=== PATIENT | male | born 1970 | race African-American/Black ===

== ENCOUNTER 2025-04-04 03:59 | Inpatient (IN) | payer OTHER ==
[2025-04-03 19:00] VITALS: BP 136/96; PULSE 92; RESP 18; TEMP 35.2806; O2SAT 100
[~2025-04-04] VITALS: Ht 180.3 cm; Wt 93.7 kg
[2025-04-04] VITALS (94 sets, daily range): BP systolic 102–170; BP diastolic 66–111; PULSE 72–128; RESP 1–27; TEMP 35–36.1; O2SAT 97–100
[2025-04-04] MEDS: ETOMIDATE 2MG/ML 10ML VIAL IV ONE (04:17)
[2025-04-04] MEDS: PROPOFOL 10MG/ML 100ML 100 ML IV SCH (04:25)
[2025-04-04 04:34] LABS: BASOPHILS % 0.3 % (0.0-2.0); EOSINOPHILS % 1.8 % (0.0-5.0); HEMATOCRIT. 30.9 % (42.0-52.0); HEMOGLOBIN. 10.5 g/dL (14.0-18.0); LYMPHOCYTES % 26.2 % (20.0-50.0); MEAN PLATELET VOLUME 8.7 fl (7.4-10.4); MONOCYTES % 9.8 % (2.0-8.0); NEUTROPHILS % 61.9 % (40.0-76.0); PLATELET 139 x1000/uL (130-400); RED BLOOD CELL COUNT 3.24 mill/uL (4.7-6.1); RED CELL DISTRIBUTION WIDTH 19.7 % (11.6-14.6)
[2025-04-04 04:43] LABS: UREA NITROGEN BLOOD 67 mg/dL (9-23)
[2025-04-04 04:44] LABS: ETHANOL BLOOD < 10 mg/dL (<10)
[2025-04-04 04:45] LABS: ASPARTATE AMINOTRANSFERASE 35 IU/L (<34); BILIRUBIN DIRECT 0.5 mg/dL (<=3.0)
[2025-04-04 04:46] LABS: BILIRUBIN TOTAL 1.1 mg/dL (0.1-1.0); PHOSPHORUS 3.9 mg/dL (2.5-4.9); PROTEIN TOTAL 7.0 g/dL (6.0-8.3)
[2025-04-04 04:49] LABS: INR 1.2
[2025-04-04 05:16] LABS: CREATININE 11.3 mg/dL (0.6-1.3); TROPONIN I HIGH SENSITIVITY 3434 ng/L (3.0-53)
[2025-04-04 05:17] LABS: CLARITY URINE CLOUDY (CLEAR); COLOR URINE YELLOW (YELLOW); GLUCOSE URINE NEGATIVE (NEGATIVE); KETONES URINE NEGATIVE (NEGATIVE); LEUKOCYTE ESTERASE URINE NEGATIVE (NEGATIVE); NITRITE URINE NEGATIVE (NEGATIVE); OCCULT BLOOD URINE 2+ (NEGATIVE); PH URINE 7.0 (4.5-8.0); PROTEIN URINE 3+ (NEGATIVE); SPECIFIC GRAVITY URINE 1.017 (1.005-1.030); UROBILINOGEN URINE 0.2 E.U./dL (0.2-1.0)
[2025-04-04 05:33] LABS: SQUAMOUS EPITHELIAL CELL URINE NONE SEEN /lpf (RARE/1+)
[2025-04-04 05:34] LABS: BACTERIA URINE TRACE; FINE GRANULAR CASTS URINE 0-5 /lpf; WBC URINE NONE SEEN /hpf (0-2)
[2025-04-04] MEDS ORDERED: IPRATROPIUM/ALBUTEROL 0.5-3(2.5)MG/3ML NEB HHN PRN ×2 (05:45→09:45)
[2025-04-04 05:54] LABS: *AMPHETAMINES SCREEN URINE NEGATIVE (NEGATIVE); *BARBITURATES SCREEN URINE NEGATIVE (NEGATIVE); *BENZODIAZEPINES SCREEN URINE NEGATIVE (NEGATIVE); *COCAINE SCREEN URINE NEGATIVE (NEGATIVE); CANNABINOID URINE SCREEN NEGATIVE (NEGATIVE); ECSTASY MDMA SCREEN URINE NEGATIVE (NEGATIVE); METHADONE URINE SCREEN NEGATIVE (NEGATIVE); OPIATES URINE SCREEN NEGATIVE (NEGATIVE); PHENCYCLIDINE URINE SCREEN NEGATIVE (NEGATIVE)
[2025-04-04 06:47] LABS: BG BASE EXCESS 5.4 mmol/L (-2.0-3.0); BG CARBOXYHEMOGLOBIN 0.6 % (0.5-1.5); BG DEOXYHEMOGLOBIN 0.4 % (0.0-5.0); BG FRACTION INSPIRED OXYGEN 100; BG HCO3 ACT 27.6 mmol/L (21.0-28.0); BG METHEMOGLOBIN 0.3 % (0.5-1.5); BG OXYGEN SATURATION 99.6 % (94.0-98.0); BG OXYHEMOGLOBIN 98.7 % (94.0-98.0); BG PCO2 32.7 mmHg (35.0-48.0); BG PEEP (cmH2O) 5.0 cmH2O; BG PH 7.545 (7.350-7.450); BG PO2 205.8 mmHg (83.0-108.0); BG SAMPLE SITE RIGHT BRACHIAL; BG TIDAL VOLUME(mL) 500.0 mL; BG TOTAL HEMOGLOBIN 11.8 g/dL (13.5-17.5); BG TOTAL RESPIRATORY RATE 21 b/min; BG VENT MODE VENT - AC; BG VENT RATE 16.0 set
[2025-04-04] MEDS: HEPARIN 60 UNITS/KG BOLUS IV SCH (06:47)
[2025-04-04 07:28] LABS: HEPATITIS A AB IGM NEGATIVE (Negative)
[2025-04-04 07:29] LABS: HEPATITIS B CORE AB IGM NEGATIVE (Negative); HEPATITIS C AB NON REACTIVE (Neg) (Negative)
[2025-04-04] MEDS: HEPARIN 25,000 UNITS PREMIX 250 ML IV SCH (07:43)
[2025-04-04] MEDS: IPRATROPIUM/ALBUTEROL 0.5-3(2.5)MG/3ML NEB HHN SCH (08:41)
[2025-04-04] MEDS ORDERED: DOCUSATE SODIUM 100MG CAPSULE PO PRN (09:45)
[2025-04-04] MEDS ORDERED: ACETAMINOPHEN 325MG TABLET PO PRN ×2 (09:45)
[2025-04-04] MEDS ORDERED: ONDANSETRON HCL 4MG/2ML INJ IV PRN (09:45)
[2025-04-04] MEDS: FAMOTIDINE 20MG/2ML VIAL IV SCH (10:37)
[2025-04-04] MEDS: ASPIRIN 81MG TABLET PO SCH (10:38)
[2025-04-04] MEDS: PROPOFOL 10MG/ML 100ML 100 ML IV PRN (10:56)
[2025-04-04] MEDS: VANCOMYCIN 2GM PMX (XELLIA) 400 ML IV NR (10:57)
[2025-04-04 12:27] LABS: TRIGLYCERIDE 102 mg/dL (0-150)
[2025-04-04 12:28] LABS: LDL CHOLESTEROL 43 mg/dL (5-100)
[2025-04-04 12:29] LABS: PHOSPHORUS 7.4 mg/dL (2.5-4.9)
[2025-04-04 12:31] LABS: T4 FREE 1.61 ng/dL (0.89-1.76)
[2025-04-04] MEDS: PIPERACILLIN/TAZO 3.375G/50ML 50 ML IV SCH (12:38)
[2025-04-04 12:50] LABS: INR 4.1
[2025-04-04 16:42] LABS: CREATINE KINASE MB FRACTION 45.1 ng/mL (0.5-3.6)
[2025-04-04 16:55] LABS: TROPONIN I HIGH SENSITIVITY 12021.0 ng/L (3.0-53)
[2025-04-04] MEDS: METOPROLOL TARTRATE 25MG TABLET PO SCH (20:22)
[2025-04-04] MEDS: HEPARIN BOLUS PRN aPTT <30 IV (20:34)
[2025-04-05] VITALS (115 sets, daily range): BP systolic 62–151; BP diastolic 51–105; PULSE 71–117; RESP 12–28; TEMP 95.1–98.3; O2SAT 92–100
[2025-04-05 00:18] LABS: CREATINE KINASE MB FRACTION 41.5 ng/mL (0.5-3.6)
[2025-04-05 00:21] LABS: TROPONIN I HIGH SENSITIVITY 10204.0 ng/L (3.0-53)
[2025-04-05] MEDS: DOXYCYCLINE 100MG/100ML 100 ML IV SCH ×2 (01:30→21:01)
[2025-04-05] MEDS: HEPARIN BOLUS PRN aPTT 30-44 IV (04:39)
[2025-04-05 05:29] LABS: BASOPHILS % 0.5 % (0.0-2.0); EOSINOPHILS % 1.9 % (0.0-5.0); HEMATOCRIT. 37.2 % (42.0-52.0); HEMOGLOBIN. 12.3 g/dL (14.0-18.0); LYMPHOCYTES % 14.3 % (20.0-50.0); MEAN PLATELET VOLUME 9.6 fl (7.4-10.4); MONOCYTES % 13.3 % (2.0-8.0); NEUTROPHILS % 70.0 % (40.0-76.0); PLATELET 134 x1000/uL (130-400); RED BLOOD CELL COUNT 3.85 mill/uL (4.7-6.1); RED CELL DISTRIBUTION WIDTH 19.9 % (11.6-14.6)
[2025-04-05 05:47] LABS: FOLIC ACID (FOLATE) SERUM 15.62 ng/mL (>5.38)
[2025-04-05 05:47] LABS: PROTEIN TOTAL 7.5 g/dL (6.0-8.3)
[2025-04-05 05:48] LABS: TRIGLYCERIDE 107 mg/dL (0-150); UREA NITROGEN BLOOD 46 mg/dL (9-23)
[2025-04-05 05:48] LABS: VITAMIN B12 SERUM 758 pg/mL (211-911)
[2025-04-05 05:49] LABS: ASPARTATE AMINOTRANSFERASE 56 IU/L (<34)
[2025-04-05 05:50] LABS: BILIRUBIN DIRECT 0.6 mg/dL (<=3.0); BILIRUBIN TOTAL 1.2 mg/dL (0.1-1.0); PHOSPHORUS 4.7 mg/dL (2.5-4.9)
[2025-04-05 06:00] LABS: CREATININE 9.1 mg/dL (0.6-1.3)
[2025-04-05] MEDS ORDERED: AMIODARONE HCL 900 MG in DEXT 5% WATER 482 ML IV SCH (09:00)
[2025-04-05] MEDS: AMIODARONE HCL 150 MG in DEXT 5% WATER 100 ML IV ONE (09:15)
[2025-04-05] MEDS: AMIODARONE 360MG/200ML 200 ML IV ONE (09:15)
[2025-04-05 09:17] LABS: BG BASE EXCESS -0.6 mmol/L (-2.0-3.0); BG CARBOXYHEMOGLOBIN 0.4 % (0.5-1.5); BG DEOXYHEMOGLOBIN 2.7 % (0.0-5.0); BG FRACTION INSPIRED OXYGEN 40; BG HCO3 ACT 22.7 mmol/L (21.0-28.0); BG METHEMOGLOBIN 0.3 % (0.5-1.5); BG OXYGEN SATURATION 97.3 % (94.0-98.0); BG OXYHEMOGLOBIN 96.6 % (94.0-98.0); BG PCO2 33.4 mmHg (35.0-48.0); BG PEEP (cmH2O) 5.0 cmH2O; BG PH 7.451 (7.350-7.450); BG PO2 97.0 mmHg (83.0-108.0); BG SAMPLE SITE RIGHT RADIAL; BG TIDAL VOLUME(mL) 450.0 mL; BG TOTAL HEMOGLOBIN 12.3 g/dL (13.5-17.5); BG VENT MODE VENT - AC; BG VENT RATE 12.0 set
[2025-04-05] MEDS: PROPOFOL 10MG/ML 100ML 100 ML IV PRN (11:45)
[2025-04-05] MEDS ORDERED: POTASSIUM CHLORIDE 20MEQ/PACKET NG ONE (13:00)
[2025-04-05] MEDS: AMIODARONE 360MG/200ML 200 ML IV SCH (15:04)
[2025-04-06] VITALS (94 sets, daily range): BP systolic 106–168; BP diastolic 64–131; PULSE 73–98; RESP 14–36; TEMP 36.8–37.00296; O2SAT 91–100
[2025-04-06 05:54] LABS: BASOPHILS % 0.2 % (0.0-2.0); EOSINOPHILS % 0.2 % (0.0-5.0); HEMATOCRIT. 34.1 % (42.0-52.0); HEMOGLOBIN. 11.6 g/dL (14.0-18.0); LYMPHOCYTES % 11.0 % (20.0-50.0); MEAN PLATELET VOLUME 10.1 fl (7.4-10.4); MONOCYTES % 9.1 % (2.0-8.0); NEUTROPHILS % 79.5 % (40.0-76.0); PLATELET 127 x1000/uL (130-400); RED BLOOD CELL COUNT 3.56 mill/uL (4.7-6.1); RED CELL DISTRIBUTION WIDTH 19.5 % (11.6-14.6)
[2025-04-06 06:16] LABS: TRIGLYCERIDE 64 mg/dL (0-150)
[2025-04-06] MEDS: ENOXAPARIN 100MG/ML SYR SUBCUT SCH (10:56)
[2025-04-06 11:10] LABS: INR 1.4
[2025-04-06 12:32] LABS: BG BASE EXCESS 0.7 mmol/L (-2.0-3.0); BG CARBOXYHEMOGLOBIN 0.1 % (0.5-1.5); BG DEOXYHEMOGLOBIN 2.4 % (0.0-5.0); BG FRACTION INSPIRED OXYGEN 40; BG HCO3 ACT 24.0 mmol/L (21.0-28.0); BG METHEMOGLOBIN 0.3 % (0.5-1.5); BG OXYGEN SATURATION 97.6 % (94.0-98.0); BG OXYHEMOGLOBIN 97.2 % (94.0-98.0); BG PCO2 34.5 mmHg (35.0-48.0); BG PEEP (cmH2O) 5.0 cmH2O; BG PH 7.461 (7.350-7.450); BG PO2 101.1 mmHg (83.0-108.0); BG SAMPLE SITE RIGHT RADIAL; BG TOTAL HEMOGLOBIN 12.5 g/dL (13.5-17.5); BG VENT MODE VENT - CPAP
[2025-04-06] MEDS: CLONIDINE 0.1MG TABLET PO PRN (16:58)
[2025-04-06] MEDS: VANCOMYCIN 500 MG in DEXT 5% WATER 100 ML IV SCH (20:44)
[2025-04-07] VITALS (65 sets, daily range): BP systolic 117–175; BP diastolic 63–101; PULSE 73–94; RESP 15–34; TEMP 35.8–37.1; O2SAT 94–100
[2025-04-07 06:14] LABS: BASOPHILS % 0.5 % (0.0-2.0); EOSINOPHILS % 0.7 % (0.0-5.0); HEMATOCRIT. 33.9 % (42.0-52.0); HEMOGLOBIN. 11.3 g/dL (14.0-18.0); LYMPHOCYTES % 13.0 % (20.0-50.0); MEAN PLATELET VOLUME 10.0 fl (7.4-10.4); MONOCYTES % 13.0 % (2.0-8.0); NEUTROPHILS % 72.8 % (40.0-76.0); PLATELET 151 x1000/uL (130-400); RED BLOOD CELL COUNT 3.54 mill/uL (4.7-6.1); RED CELL DISTRIBUTION WIDTH 20.1 % (11.6-14.6)
[2025-04-07 06:25] LABS: UREA NITROGEN BLOOD 61.0 mg/dL (9-23)
[2025-04-07 06:27] LABS: CREATININE 10.4 mg/dL (0.6-1.3)
[2025-04-07] MEDS: ENOXAPARIN 100MG/ML SYR SUBCUT SCH (08:32)
[2025-04-07] MEDS: TOBRAMYCIN SULFATE 40MG/ML 2ML INH SCH (21:45)
[2025-04-08] VITALS (18 sets, daily range): BP systolic 132–160; BP diastolic 68–95; PULSE 71–113; RESP 16–22; TEMP 36.3–36.9; O2SAT 95–99
[2025-04-08 06:11] LABS: UREA NITROGEN BLOOD 75.0 mg/dL (9-23)
[2025-04-08 06:29] LABS: BASOPHILS % 0.2 % (0.0-2.0); EOSINOPHILS % 1.4 % (0.0-5.0); HEMATOCRIT. 33.8 % (42.0-52.0); HEMOGLOBIN. 11.2 g/dL (14.0-18.0); LYMPHOCYTES % 17.3 % (20.0-50.0); MEAN PLATELET VOLUME 9.3 fl (7.4-10.4); MONOCYTES % 13.7 % (2.0-8.0); NEUTROPHILS % 67.4 % (40.0-76.0); PLATELET 141 x1000/uL (130-400); RED BLOOD CELL COUNT 3.49 mill/uL (4.7-6.1); RED CELL DISTRIBUTION WIDTH 20.7 % (11.6-14.6)
[2025-04-08 06:35] LABS: CREATININE 11.9 mg/dL (0.6-1.3)
[2025-04-08] MEDS: ENOXAPARIN 100MG/ML SYR SUBCUT SCH (08:20)
[2025-04-08] MEDS: AMPICILLIN SOD/SULBACTAM NA 3 G in SODIUM CHLORIDE 0.9% 100 ML IV SCH (21:53)
[2025-04-09] VITALS (8 sets, daily range): BP systolic 144–166; BP diastolic 79–95; PULSE 81–90; RESP 19–22; TEMP 36.2–37.2; O2SAT 94–100
[2025-04-09 07:44] LABS: BASOPHILS % 0.4 % (0.0-2.0); EOSINOPHILS % 1.9 % (0.0-5.0); HEMATOCRIT. 34.7 % (42.0-52.0); HEMOGLOBIN. 11.7 g/dL (14.0-18.0); LYMPHOCYTES % 14.4 % (20.0-50.0); MEAN PLATELET VOLUME 9.5 fl (7.4-10.4); MONOCYTES % 13.1 % (2.0-8.0); NEUTROPHILS % 70.2 % (40.0-76.0); PLATELET 157 x1000/uL (130-400); RED BLOOD CELL COUNT 3.62 mill/uL (4.7-6.1); RED CELL DISTRIBUTION WIDTH 20.5 % (11.6-14.6)
[2025-04-09 08:01] LABS: UREA NITROGEN BLOOD 58.0 mg/dL (9-23)
[2025-04-09 08:08] LABS: CREATININE 10.6 mg/dL (0.6-1.3)
[2025-04-09] MEDS ORDERED: LORAZEPAM 0.5MG TABLET PO PRN (20:45)
[2025-04-10] VITALS (16 sets, daily range): BP systolic 123–163; BP diastolic 49–90; PULSE 56–94; RESP 16–20; TEMP 36.2–37.2; O2SAT 93–100
== END 2025-04-10 19:37 | disposition short-term general hospital (02) | DRG 871 ==
LOC: ER 03:59 → MICUSO 05:19 → EDBEDREQTM 05:28 → EDBEDREQ 05:28 → ENRESERV 05:34 → 7WST 04-07 18:40
PROVIDERS: ADMIT Internal Medicine; ATTEND Internal Medicine
PROC: 0BH17EZ Insertion of Endotracheal Airway into Trachea, Via Natural or Artificial Opening (ICD-10-PCS; principal; 2025-04-04)
PROC: 5A1945Z Respiratory Ventilation, 24-96 Consecutive Hours (ICD-10-PCS; 2025-04-04)
PROC: 5A1D70Z Performance of Urinary Filtration, Intermittent, Less than 6 Hours Per Day (ICD-10-PCS; 2025-04-04)
PROC: 5A1D70Z Performance of Urinary Filtration, Intermittent, Less than 6 Hours Per Day (ICD-10-PCS; 2025-04-06)
PROC: 5A1935Z Respiratory Ventilation, Less than 24 Consecutive Hours (ICD-10-PCS; 2025-04-07)
PROC: 5A1D70Z Performance of Urinary Filtration, Intermittent, Less than 6 Hours Per Day (ICD-10-PCS; 2025-04-08)
PROC: 5A1D70Z Performance of Urinary Filtration, Intermittent, Less than 6 Hours Per Day (ICD-10-PCS; 2025-04-10)
DX: A41.9 Sepsis, unspecified organism (principal); I21.4 Non-ST elevation (NSTEMI) myocardial infarction; G93.41 Metabolic encephalopathy; I50.23 Acute on chronic systolic (congestive) heart failure; J96.01 Acute respiratory failure with hypoxia; N18.6 End stage renal disease; J18.9 Pneumonia, unspecified organism; I46.9 Cardiac arrest, cause unspecified; E87.20 Acidosis, unspecified; I13.2 Hypertensive heart and chronic kidney disease with heart failure and with stage 5 chronic kidney disease, or end stage renal disease; I48.92 Unspecified atrial flutter; E11.22 Type 2 diabetes mellitus with diabetic chronic kidney disease; I25.10 Atherosclerotic heart disease of native coronary artery without angina pectoris; F32.A Depression, unspecified; D64.9 Anemia, unspecified; I45.10 Unspecified right bundle-branch block; Z99.2 Dependence on renal dialysis; Z95.1 Presence of aortocoronary bypass graft; I25.2 Old myocardial infarction; Z86.73 Personal history of transient ischemic attack (TIA), and cerebral infarction without residual deficits
CPT/HCPCS: 31500; 31720; 36415; 36600; 71045; 74176; 76604; 76700; 80048; 80051; 80061; 80076; 80202; 80305; 80320; 81003; 82375; 82550; 82553; 82607; 82728; 82746; 82805; 82962; 83036; 83540; 83550; 83605; 83735; 83880; 84100; 84145; 84439; 84443; 84478; 84480; 84484; 85025; 86705; 86709; 87070; 87077; 87186; 87340; 90935; 92610; 93005; 93306; 93970; 94002; 94003; 94070; 94640; 94664; 94760; 97162; 99291; A4606; A6261; J0282; J0295; J1308; J1644; J1650; J2543; J2704; J3260; J3373; J3490; J7050; J7060; G0480